=== PATIENT | female | born 1975 | race Two or more races ===

== ENCOUNTER → 2025-09-28 | Outpatient (CLI) | payer OTHER, SELFPAY ==
--- NOTE | 2025-09-28 | XR_ITS ---
Examination: Bilateral hands, 6 views. Technique: AP, Oblique, Lateral each hand total 6 views Date and time of exam: September 28, 2025, 1211 hours INDICATIONS: Cyst on the right hand fourth digit and left first and fifth digits 2 months carpometacarpal tunnel surgery Findings: Moderate extra-articular bone demineralization No acute fractures Bilateral mild to moderate osteoarthritis first carpometacarpal joints Bilateral mild osteoarthritis radiocarpal joints No erosive arthritis No fractures Mild osteoarthritis metacarpophalangeal and interphalangeal joints IMPRESSION: Osteoarthritis as above No erosive arthritis
--- NOTE | 2025-09-28 | XR_ITS ---
EXAMINATION: Bilateral wrist 6 views TECHNIQUE: AP oblique lateral right wrist total 6 views Date and time: September 28, 2025, 12:21 p.m. INDICATIONS: Cyst on the right fourth digit and left first and fifth digits history carpal tunnel surgery wrist pain months FINDINGS: Bilateral mild to moderate osteoarthritis first carpometacarpal joints Bilateral mild to moderate osteoarthritis radiocarpal joints No fractures or dislocations No avascular necrosis No erosive arthritis IMPRESSION: Osteoarthritis as above
== END | disposition home or self-care (01) ==
DX: M19.042 Primary osteoarthritis, left hand (principal); M19.041 Primary osteoarthritis, right hand; M19.032 Primary osteoarthritis, left wrist; M19.031 Primary osteoarthritis, right wrist
CPT/HCPCS: 73110; 73130